=== PATIENT | male | born 1950 | race Caucasian/White ===

== ENCOUNTER → 2016-11-30 | Day surgery (SDC) | payer BC ==
[~2016-11-30] VITALS: Ht 181.6 cm; Wt 71.8 kg
[~2016-11-30] MED LIST: ALEVE220 MG PO; ANDROGEL75 G1 TOP; BENADRYL25 MG PO; FLEXERIL10 MG PO; LEXAPRO10 MG PO; NORCO 5-325 MG1 TAB PO; NORVASC2.5 MG PO; PRAVACHOL40 MG PO; TOPROL XL 5050 MG PO; TOPROL XL25 MG PO
== END | disposition disaster alternative care site (69) ==
LOC: GPOC 11-29 09:00 → GEND 08:53 → GPOC 09:00
PROC: 0DBP8ZX Excision of Rectum, Via Natural or Artificial Opening Endoscopic, Diagnostic (ICD-10-PCS; principal; 2016-11-30)
DX: Z12.11 Encounter for screening for malignant neoplasm of colon (principal); K62.1 Rectal polyp; Z80.0 Family history of malignant neoplasm of digestive organs; I10 Essential (primary) hypertension; G47.00 Insomnia, unspecified; M79.1 Myalgia; E29.1 Testicular hypofunction; F32.9 Major depressive disorder, single episode, unspecified; Z88.8 Allergy status to other drugs, medicaments and biological substances; Z79.899 Other long term (current) drug therapy; Z96.649 Presence of unspecified artificial hip joint; Z98.890 Other specified postprocedural states
CPT/HCPCS: J2001; J7030